=== PATIENT | male | born 1950 | race Caucasian/White ===

== ENCOUNTER 2017-02-09 07:22 | Day surgery (SDC) | payer MEDICARE ==
[~2017-02-09] VITALS: Ht 181.6 cm; Wt 113.6 kg
--- NOTE | ~2017-02-09 | OP ---
PATIENT NAME: DAPHNEY REYES MEDICAL RECORD: [id number] :50 LOCATION:D.OPS ADMISSION DATE: SURGEON: DERECK VELAZQUEZ DO DATE OF SERVICE: 02/09/2017 PROCEDURE: Colonoscopy with hot forceps polypectomy. INDICATIONS FOR PROCEDURE: Altered bowel function and generalized abdominal pain. SCOPE: [employer] video pediatric colonoscope. MEDICATIONS: Propofol 470 milligrams IV per anesthesia. WITHDRAWAL TIME: 15 minutes. ESTIMATED BLOOD LOSS: Minimal. COMPLICATIONS: None. FINDINGS: Informed consent was given. The patient was made comfortable with the above medication. After reaching an adequate level of sedation by slow IV push, the patient was placed on his left side. A digital rectal examination was performed and was normal. The endoscope was then advanced under direct visualization through the rectum to the cecum with visualization of the appendiceal orifice and ileocecal valve. Difficulty was moderate and required some counterpressure due to loop formation of the scope. The scope was slowly withdrawn and mucosa was carefully examined. There were a total of four polyps visualized during the examination. Two polyps were in the ascending colon. Both were benign appearing and sessile measuring from 3-4 millimeters in size. Both were removed with hot forceps in one piece and completely retrieved. There were also two polyps located in the transverse colon which were benign appear ing and sessile. They both measured approximately 3-4 millimeters in size and were removed with hot forceps in one piece and completely retrieved. Retroflexion was performed in the rectum with a normal appearance. The endoscope was then withdrawn from the patient. The patient tolerated the procedure well and there were no complications. IMPRESSIONS: Four colon polyps as described above, all removed with hot forceps. PLAN/RECOMMENDATIONS: 1. Discharge home when recovery parameters are met. 2. Continue current medications. 3. Continue current diet. 4. Recall colonoscopy will likely be in three years, but I will await pathology results for final determination of recall time line. 5. At this time the patient's symptoms of abdominal pain and change in bowels have resolved. If they change or worsen he should notify the clinic for further workup. OPERATIVE REPORT [id number] DAPHNEY REYESDERECK SANTILLAN DO CC: [id number] DICTATION DATE: 02/09/17 1200 CERTIFIED ETHICAL HACKER: DM 02/09/[address] [facility] 02/09/17 [facility] [address] [place] [address]
[2017-02-09] MEDS ORDERED: LANTUS INSULIN10 ML SC (08:08)
[2017-02-09] MEDS ORDERED: NOVOLOG100 U/M1 SC (08:09)
[2017-02-09] MEDS ORDERED: COREG 3.1253.125 MG PO (08:10)
[2017-02-09] MEDS ORDERED: KLONOPIN1 MG PO (08:10)
[2017-02-09] MEDS ORDERED: PRAVACHOL40 MG PO (08:10)
[2017-02-09] MEDS ORDERED: COZAAR50 MG PO (08:11)
[2017-02-09] MEDS ORDERED: CYMBALTA60 MG PO (08:11)
[2017-02-09] MEDS ORDERED: MIRALAX17 GM PO (08:12)
[2017-02-09] MEDS ORDERED: CHILDREN'S ASPI81 MG PO (08:13)
[2017-02-09] MEDS ORDERED: ZANTAC150 MG PO (08:13)
[2017-02-09] MEDS ORDERED: HYDROCODON-ACE1 EAC7 PO (08:14)
[2017-02-09] MEDS ORDERED: COLACE100 MG PO (08:15)
[2017-02-09 08:21] VITALS: BP 121/81; Ht 181.6 cm; Wt 113.6 kg
[2017-02-09 08:35] LABS: HEMATOCRIT 48.9 % (42.0-54.0); HEMOGLOBIN 17.2 g/dL (13.5-17.5); MCH 33.9 pg (26.0-34.0); MCHC 35.2 g/dL (31.0-37.0); MCV 96.3 fL (80.0-100.0); MEAN PLATELET VOLUME 11.9 fL (7.4-10.4); RBC 5.08 10x6/uL (4.20-6.10); RDW 13.1 % (11.5-14.5); WBC 7.8 10x3/uL (4.8-10.8)
[2017-02-09 08:43] LABS: ANION GAP 15.4 mmol/L (8-16); CREATININE - SERUM 1.2 mg/dL (0.6-1.3); POTASSIUM - SERUM 4.4 mmol/L (3.5-5.1)
--- NOTE | 2017-02-09 11:13 | NUR ---
1005- PT BACK IN LL POSITION. HOB ELEVATED. VSS. DAUGHTER AT BEDSIDE. DR. VELAZQUEZ DISCUSSED PROCEDURAL FINDINGS. WILL MONITOR. 1025- PT TOOK INSULIN PER HOME FSBS READING AND WITH HOME SUPPLY OF MEDICATION. 1035- FULL LIQUIDS TOLERATED. IV D/C'D, PT TOLERATED. CATHETER INTACT. 1055- DISCHARGE INSTRUCTIONS COMPLETED, PT VERBALIZED UNDERSTANDING. PAPERWORK SIGNED. 1100- PT DISCHARGED VIA WHEELCHAIR WITH DAUGHTER.
== END 2017-02-09 11:00 | disposition home or self-care (01) ==
LOC: D.OPS 07:22
PROVIDERS: Anesthesiology
DX: D12.4 Benign neoplasm of descending colon (principal); D12.3 Benign neoplasm of transverse colon; D12.2 Benign neoplasm of ascending colon; Z01.812 Encounter for preprocedural laboratory examination